=== PATIENT | female | born 1990 | race American Indian/Alaskan Native ===

== ENCOUNTER 2016-12-27 01:02 | Outpatient (CLI) | payer OTHER ==
[2016-12-27] MEDS ORDERED: LACTATED RINGERS 1,000 ML IV ONE (01:40)
[2016-12-27] MEDS ORDERED: ZOFRAN IV ONE (01:41)
[2016-12-27] MEDS ORDERED: LACTATED RINGERS 1,000 ML IV SCH (02:00)
[2016-12-27 02:10] VITALS: BP 111/70
== END 2016-12-27 03:52 | disposition home or self-care (01) ==
LOC: TRG 01:02
PROVIDERS: ATTEND Obstetrics & Gynecology
DX: O36.8130 Decreased fetal movements, third trimester, not applicable or unspecified (principal); Z3A.31 31 weeks gestation of pregnancy
CPT/HCPCS: 59025; 96360; 96361; J2405; J7120